=== PATIENT | female | born 1980 | race Caucasian/White ===

== ENCOUNTER 2020-01-13 09:19 | Emergency (ER) | payer OTHER, SELFPAY ==
--- NOTE | 2020-01-13 09:22 | ED.GENADULT ---
HPI - General Adult General Chief complaint: Skin/Abscess/Foreign Body Stated complaint: sore on left bikini line Time Seen by Provider: 01/13/20 09:36 Source: patient Mode of arrival: ambulatory Limitations: no limitations History of Present Illness HPI narrative: 39-year-old female patient presents to the [facility] with complaints of pimple to the left groin that is been there for about 3 days. Patient states she was able to pop it on her own and states that she had been putting Bactroban on it and it was getting better. Patient states that she sat around in a swimsuit yesterday and states that seem to have gotten a little bit worse. Denies any fevers, body aches or chills. Denies any chest pain or shortness of breath. Related Data Home Medications Medication Instructions Recorded Confirmed No Home Medications 01/13/20 01/13/20 Allergies Allergy/AdvReac Type Severity Reaction Status Date / Time Sulfa (Sulfonamide Allergy Unknown Rash Verified 01/13/20 09:30 Antibiotics) Review of Systems Review of Systems: Narrative: CONSTITUTIONAL: Denies fever, chills, or sweats. EYES: Denies visual changes, redness, or discharge. ENT: Denies rhinorrhea, congestion, sore throat, or otalgia. CARDIOVASCULAR: Denies chest pain, palpitations, or edema. RESPIRATORY: Denies cough or dyspnea. GASTROINTESTINAL: Denies abdominal pain, nausea, vomiting, or diarrhea. GENITOURINARY: Denies dysuria or hematuria. SKIN: Denies rash or itching. Positive pimple to left groin x3 days MUSCULOSKELETAL: Denies back pain, joint pain, or myalgia. NEUROLOGIC: Denies headache, numbness, or weakness. PSYCHIATRIC: Denies anxiety or depression. [facility] Surgical History Surgical History (Updated 07/23/19 @ 09:09 by Carmen Weller NP) Previous section S/P removal of left ovary Family History Family History Mother Family history of pulmonary embolism Other Family history of malignant neoplasm of breast Family history of type 1 diabetes mellitus Social History Social History Smoking status: Never smoker Alcohol intake: current Gender identity (if verbalized by the patient): Female Comments At the time of my signature I agree with nursing past medical history, surgical, social, and family history. There is no relevant family history pertinent to the presenting complaint. Exam Narrative: Exam Narrative: GENERAL: Well-appearing, well-nourished, and in no acute distress. HEAD: Normocephalic, atraumatic. EYES: PERRLA and EOMI. ENT: Nares clear, no rhinorrhea or epistaxis. Mucous membranes moist. NECK: Supple. No lymphadenopathy CHEST: Clear to auscultation. No respiratory distress. HEART: Regular rate and rhythm. No murmur heard. Normal peripheral pulses. ABDOMEN: Soft, nontender, nondistended, normal active bowel sounds. EXTREMITIES: Normal range of motion. No edema. SKIN: Warm, dry, no rash. Patient has small pimple-like area measuring approximately 0.5 cm in diameter on the left groin right along the underwear line. There is no warmth noted. No active discharge. Small scab in the middle where patient had popped the area. NEURO: No focal deficits. Alert and oriented x3. Course Vital Signs Vital signs: Vital Signs Temperature 36.8 C 01/13/20 09:27 Pulse Rate 87 01/13/20 09:27 Respiratory Rate 16 01/13/20 09:27 Blood Pressure 113/69 01/13/20 09:27 Pulse Oximetry 99 01/13/20 09:27 Temperature 36.8 C 01/13/20 09:27 Pulse Rate 87 01/13/20 09:27 Respiratory Rate 16 01/13/20 09:27 Blood Pressure 113/69 01/13/20 09:27 Pulse Oximetry 99 01/13/20 09:27 Vital signs reviewed. Procedures Abscess I/D lower extremity: Date of Incision: 01/13/20 Side (if applicable): left Sedation/analgesia: none Local Anesthetic: none (Let) Technique: other
[2020-01-13 09:27] VITALS: BP 113/69; PULSE 87; RESP 16; TEMP 36.8; O2SAT 99
== END 2020-01-13 10:10 | disposition home or self-care (01) ==
PROVIDERS: Emergency Provider Nurse Practitioner Family; PCP Internal Medicine
DX: L02.416 Cutaneous abscess of left lower limb (principal)
CPT/HCPCS: 10060; 99212; G0463

== ENCOUNTER 2022-03-18 10:34 | Emergency (ER) | payer OTHER, SELFPAY ==
[2022-03-18] VITALS (21 sets, daily range): BP systolic 105–147; BP diastolic 64–88; PULSE 89–110; RESP 13–24; TEMP 36.5–36.9; O2SAT 95–100
--- NOTE | 2022-03-18 10:52 | ECG_ITS ---
Measurements Intervals [place] Rate: 97 P: 62 LA: 150 QRS: 78 QRSD: 97 T: 57 QT: 365 QTc: 464 Interpretive Statements SINUS RHYTHM POSSIBLE LEFT ATRIAL ENLARGEMENT [-0.1mV P-WAVE IN V1/V2] NONSPECIFIC T-WAVE ABNORMALITY NO PREVIOUS ECG AVAILABLE FOR COMPARISON Electronically Signed On 03-19-2022 13:18:10 CDT by Karolina Colmenares M.D.
[2022-03-18 11:03] LABS: Basophils Absolute Auto 0.1 K/mm3 (0.0-0.1); Basophils Percent Auto 0.6 % (0.2-1.2); Eosinophils Absolute Auto 0.1 K/mm3 (0-0.3); Eosinophils Percent Auto 1.1 % (0-4.4); Hematocrit 40.1 % (37.0-47.0); Hemoglobin 13.5 g/dL (12.0-15.0); Immature Granulocyte Absolute 0.03 K/mm3 (0.00-0.031); Immature Granulocyte Percent A 0.4 % (0-0.5); Lymphocytes Absolute Auto 2.09 K/mm3 (0.9-3.2); Lymphocytes Percent Auto 24.7 % (18.3-44.2); Mean Corpuscular HGB Conc 33.7 g/dl (32-36); Mean Corpuscular Hemoglobin 32.4 pg (26-34); Mean Corpuscular Volume 96.2 fl (80-100); Mean Platelet Volume 9.9 fl (7.4-10.4); Monocytes Absolute Auto 0.4 K/mm3 (0.1-0.6); Monocytes Percent Auto 5.2 % (2.6-8.5); Neutrophils Absolute Auto 5.8 K/mm3 (1.3-6.7); Platelet Count Result 319 k/mm3 (150-375); Red Blood Count 4.17 M/mm3 (4.2-5.4); Red Cell Distribution Width 13.1 % (11.5-14.5); White Blood Count 8.5 K/mm3 (4.5-10.0)
--- NOTE | 2022-03-18 11:10 | PC.NURSE ---
Patient states she is unable to urinate at this time.
[2022-03-18 11:35] LABS: Anion Gap 16 mmol/L (8-16); Blood Urea Nitrogen 5 mg/dL (7-17); Calcium 9.1 mg/dL (8.4-10.2); Carbon Dioxide 18 mmol/L (22-30); Chloride 100 mmol/L (98-107); Estimated CRCL calculation 104 ml/min; Estimated Glomerular Filt Rate > 60; Glucose 90 mg/dL (65-110); Potassium 2.9 mmol/L (3.4-5.0); Sodium 134 mmol/L (137-145)
--- NOTE | 2022-03-18 11:44 | PC.NURSE ---
Patient states she feels bad and that she might pass out. EDP Joel notified.
[2022-03-18] MEDS: LORazepam INJ (*CRX) 2 MG/ML VIAL 0.5 MG IV PUSH (11:59)
[2022-03-18] MEDS: POTASSIUM CHLORIDE 20 MEQ PACKET (FOR LIQUID) 40 MEQ PO (12:00)
[2022-03-18] MEDS: SODIUM CHLORIDE 0.9% IV 1,000 ML 999 ML IV CONT (12:01)
[2022-03-18] MEDS: POTASSIUM CHLORIDE INJ 40 MEQ in SODIUM CHLORIDE 0.9% IV 500 ML 130 MEQ IVPB (12:01)
--- NOTE | 2022-03-18 12:02 | ED.WEAKNESS ---
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 State that she was driving earlier with her son when this episode started and she had to pull tab dealer. Social EtOH intake not daily drinker. Related Data Home Medications Medication Instructions Recorded Confirmed No Home Medications 01/13/20 01/13/20 Allergies Allergy/AdvReac Type Severity Reaction Status Date / Time Sulfa (Sulfonamide Allergy Unknown Rash Verified 03/18/22 10:46 Antibiotics) Review of Systems Review of Systems: CONST: Malaise HEENT: No sore throat C/V: No chest pain RESP: No cough GI: No abdominal pain : No dysuria. M/S: No joint pain. SKIN: No rash. NEURO: [No headache or focal numbness or weakness] PSYCH: Anxiety PMFSH Surgical History Surgical History Previous section S/P removal of left ovary Family History Family History Mother Family history of pulmonary embolism Other Family history of malignant neoplasm of breast Family history of type 1 diabetes mellitus Social History Social History Smoking status: Never smoker Alcohol intake: current Gender identity (if verbalized by the patient): Female Exam Narrative: EXAMINATION OF ORGAN SYSTEMS/BODY AREAS: Constitutional: Vital signs per nursing GENERAL: Appears quite anxious HEAD: Normal with no signs of head trauma. EYES: EOMI, conjunctiva normal ENT: Hearing grossly intact LUNGS: tachypneic HEART: tachycardic ABD: [Soft], [nontender to palpation] EXT: Normal range of motion SKIN: [No rashes or lesions.] NEURO: [Alert and oriented x 3. No gross focal sensory or strength deficits.] PSYCH: Anxious affect Course Vital Signs Vital signs: Vital Signs Temperature 97.7 F 03/18/22 10:43 Pulse Rate 108 H 03/18/22 10:43 Respiratory Rate 18 03/18/22 10:43 Blood Pressure 147/88 H 03/18/22 10:43 Pulse Oximetry 100 03/18/22 10:43 Oxygen Delivery Room Air 03/18/22 10:43 Temperature 97.7 F 03/18/22 10:43 Pulse Rate 100 03/18/22 12:23 Respiratory Rate 19 03/18/22 12:23 Blood Pressure 135/85 03/18/22 11:01 Pulse Oximetry 100 03/18/22 11:30 Oxygen Delivery Room Air 03/18/22 10:43 MDM - Weakness MDM Narrative Medical decision making narrative: 41-year-old female presenting with malaise and anxiety that started this morning, vital signs notable for tachycardia, on exam she does appear quite anxious, my differential includes possible anxiety attack, anemia, less likely PE without chest pain or difficulty breathing. Labs notable for low potassium and bicarb, she will be repleted and was given small dose of ativan with total resolution of her symptoms. She states her vaginal bleeding has resolved and declined a pelvic exam at this time. I have asked her to follow-up with her primary care doctor for further work-up and return precautions provided to the patient. Lab Data Result diagrams: 03/18/22 10:54 03/18/22 10:54 Labs: Lab Results 03/18/22 03/18/22 03/18/22 Range/Units 10:54 10:54 10:54 WBC 8.5 (4.5-10.0) K/mm3 RBC 4.17 L (4.2-5.4) M/mm3 Hgb 13.5 (12.0-15.0) g/dL Hct 40.1 (37.0-47.0) % M
[2022-03-18 12:22] LABS: Add Urine Microscopic? NO; Appearance Urine Clear (Clear); Bilirubin Urine Negative (Negative); Blood Urine Negative (Negative); Color Urine Yellow (Yellow); Glucose Urine UA Negative (Negative); Ketones Urine Negative (Negative); Leukocyte Esterase Ur Negative LEU/UL (Negative); Nitrate Urine Negative (Negative); Protein Urine Negative (Negative); Urobilinogen Urine 0.2 mg/dL (<2.0)
[2022-03-18 12:41] LABS: D Dimer 0.48 ug/mL (<0.48)
[2022-03-18] MEDS: ACETAMINOPHEN 500 MG TABLET 1000 MG PO (16:01)
== END 2022-03-18 17:38 | disposition home or self-care (01) ==
PROVIDERS: Emergency Provider Emergency Medicine; PCP Internal Medicine
DX: E87.6 Hypokalemia (principal)
CPT/HCPCS: 36415; 80048; 81003; 81025; 85025; 85380; 93005; 96365; 96366; 96375; 99284; A9270; J2060; J3480; J7030; J7040

== ENCOUNTER → 2022-06-17 11:17 | Outpatient (CLI) | payer OTHER, SELFPAY ==
--- NOTE | ~2022-06-17 | MM_ITS ---
EXAMINATION: MM scrn michele implant BI w [facility] HISTORY: Screening mammogram TECHNIQUE: Craniocaudal and mediolateral oblique 3-D tomosynthesis images with implant displacement a nd synthetic 2-D images were generated. Craniocaudal and mediolateral oblique views of the breasts wi thout implant displacement were obtained using full field digital mammography. CAD analysis was submi tted and interpreted. COMPARISON: 09/30/2015 BREAST PARENCHYMAL COMPOSITION: The breasts are heterogeneously dense, which may obscure small masses FINDINGS: There are bilateral subglandular silicone implants. There is a new focal asymmetry in the p eriareolar location of the right breast just lateral to the nipple. The left breast is stable without evidence for malignancy. IMPRESSION: 1. New right breast asymmetry. 2. Additional mammographic views and possible breast ultrasound are recommended. BI-RADS Category 0: Incomplete: Needs additional imaging evaluation. Reviewed, dictated and finalized at location A. ESS AREA SUPERVISOR IMPRESSION: 1. New right breast asymmetry. 2. Additional mammographic views and possible breast ultrasound are recommended . BI-RADS Category 0: Incomplete: Needs additional imaging evaluation.
== END ==
PROVIDERS: PCP Internal Medicine; Visit Provider Obstetrics & Gynecology
DX: Z12.31 Encounter for screening mammogram for malignant neoplasm of breast (principal); R92.8 Other abnormal and inconclusive findings on diagnostic imaging of breast
CPT/HCPCS: 77063; 77067

== ENCOUNTER → 2022-07-08 08:15 | Outpatient (CLI) | payer OTHER, SELFPAY ==
--- NOTE | ~2022-07-08 | MMUS_ITS ---
EXAMINATION: MM diag michele implant RT w [facility], US breast RT limited HISTORY: Focal asymmetry of the right breast on screening mammogram TECHNIQUE: Craniocaudal, mediolateral, and mediolateral oblique 3-D tomosynthesis images with implant displacement of the right breast were performed and synthetic 2-D images were generated. Mediolater al oblique view of the right breast without implant displacement were obtained using full field digit al mammography. CAD analysis was submitted and interpreted. High resolution limited right breast ultr asound was performed. COMPARISON: 06/17/2022, 09/30/2015 FINDINGS: MAMMOGRAPHIC FINDINGS: No definite focal asymmetry persists with spot compression in the subareolar aspect of the right [address]. ULTRASOUND: There is a 6 mm x 4 mm oval, circumscribed, parallel, hypoechoic mass with no posterior features or i nternal vascularity at the 11:00 location 5 cm from the nipple. There is a 10 mm x 4 mm oval, circums cribed, complex cystic and solid mass at the 11:00 location 4 cm from the nipple with no posterior fe atures or internal vascularity, possible clustered microcysts. There is a 3 mm round, hypoechoic, cir cumscribed mass with no posterior features or internal vascularity at the 12:00 location 6 cm from th e nipple. IMPRESSION: 1. Probably benign right breast masses. 2. Recommend 6 month follow-up right diagnostic mammogram and ultrasound. BI-RADS category 3, probably benign findings. Reviewed, dictated and finalized at location A. ERMAKER SHIP IMPRESSION: 1. Probably benign right breast masses. 2. Recommend 6 month follow-up right diagnostic mammogram and ultrasound. BI-RADS category 3, probably benign findings.
== END ==
PROVIDERS: PCP Internal Medicine; Visit Provider Obstetrics & Gynecology
DX: R92.8 Other abnormal and inconclusive findings on diagnostic imaging of breast (principal)
CPT/HCPCS: 76642; 77061; 77065; G0279

== ENCOUNTER 2022-07-20 01:27 | Day surgery (SDC) | payer OTHER, SELFPAY ==
[2022-07-06 12:08] VITALS: BMI 25.8
--- NOTE | 2022-07-06 12:12 | PC.NURSE ---
Report to the Outpatient Waiting Room, entrance under the green pavilion located off [facility], at time 0600 on date 07/20/22. Planned Procedure Time: 0730. Time changes happen often and if your time is changed the preop area will call you the afternoon before. - You and your visitor will be asked to self-screen and do not enter if you have any COVID symptoms. - Only one visitor is requested with a max of two and NO children visitors are allowed at this time. - The patient visitor may be requested to leave or wait in car when not with patient due to distancing restrictions. - A mask is optional within the hospital. Patients may have clear liquids (water, carbonated beverages, clear teas, apple juice) until 3 hours prior to surgery with a maximum of 20 ounces. - No food from midnight until time of surgery Take the following medications with a SIP of water the morning of surgery: ALPRAZOLAM, PROPRANOLOL Medications to discontinue per physician: N/A Date to take last dose: N/A Please no make-up, nail swedish, hairspray, perfume, deodorant, or body powder the day of surgery. No jewelry (including any body piercings) or valuables the day of surgery, leave them at home. Please take a shower or bath the night before, or the morning of, surgery with an antibacterial soap. Wear comfortable, loose fitting clothing. - Jewelry must be removed prior to entering the operating room. Rings and piercings that are not removed may be cut off. - The hospital will not accept responsibility for valuables. - Please leave all valuables, including medications, at home the day of surgery. If you are going home after surgery, a licensed team otr truck driver must drive you home. - NO public transportation without another adult if you receive anesthesia. - We recommend that an adult stay with you for 24 hours following discharge. - We also recommend that you do not drive, make important decision, drink alcoholic beverages, or take any drugs that were not prescribed by your health care provider for at least 24 hours after your discharge time. Follow any additional instructions given to you from your surgeon. If you or anyone in your household have experienced Covid symptoms in the past week, please notify your surgeon or the nurse liaison at the phone number below for possible testing. Telephone instructions given to PT - ELZBIETA LENTZ and asked if any additional questions and then verbalized understanding. Patient advised to call surgeon office or pre surgery nurse liaison [phone] if any additional questions.
--- NOTE | 2022-07-19 21:26 | PM.IMHP ---
H&P: HPI History of Present Illness Date/Time: 07/19/22 21:26 Chief Complaint: Heavy bleeding Narrative: Patient with a history of menorrhagia. She has been informed of options to include IUD, oral conrtraceptive pills, Depo Provera, Nexplanon or endometrial ablation. Partner has a vasectomy. Risk benefits have been discussed of each option. She has had a normal endometrial biopsy. She wants to proceed with endometrial ablation. Review of Systems Review of Systems: All systems reviewed & are unremarkable except as noted in HPI and below Constitutional: Constitutional: Reports no additional constitutional complaints Eyes: Eyes: Reports no additional eye complaints Cardiovascular: Cardiovascular: Reports no additional cardiovascular complaints Respiratory: Respiratory: Reports no additional respiratory complaints Gastrointestinal: Gastrointestinal: Reports no additional gastrointestinal complaints Genitourinary: Genitourinary: Reports no additional female genitourinary complaints and Reports as per HPI Integumentary/Breasts: Skin/Breast: Reports system reviewed and no additional complaints, except as docu Neurologic: Reports system reviewed and no additional complaints, except as documented Psychiatric: Psychiatric: Reports no additional psychiatric complaints Hematologic/Lymphatic: Hematologic/Lymphatic: Reports no additional hematologic/lymphatic complaints [facility] Past Medical History Medical History EP (ectopic ) History of miscarriage Surgical History Surgical History H/O breast augmentation History of breast lift History of dilatation and curettage Previous section x2 S/P hernia repair S/P removal of left ovary [place] teeth removed Family History Family History Mother Family history of pulmonary embolism Other Family history of malignant neoplasm of breast Family history of type 1 diabetes mellitus Social History Social History Smoking status: Never smoker Alcohol intake: current Drinks per week: 7 Substance use: never Substance use type: does not use Gender identity (if verbalized by the patient): Female Spiritual care concerns: No Meds Home Medications and Allergies Home Medications Medication Instructions Recorded Confirmed Type alprazolam 0.25 mg tablet (Xanax) 0.25 mg PO DAILY 05/09/22 07/06/22 History propranolol 60 mg tablet 60 mg PO Q12H 05/09/22 07/06/22 History Allergies Allergy/AdvReac Type Severity Reaction Status Date / Time Sulfa (Sulfonamide Allergy Unknown Rash Verified 07/06/22 12:07 Antibiotics) Exam Const: General: comfortable and no acute distress Orientation/consciousness: oriented to person, oriented to place and oriented to time Eyes: General: appearance normal, both eyes and all related structures Neck: Neck: normal visual inspection Resp: Effort & Inspection: normal respiratory effort Auscultation: clear to auscultation bilaterally Cardio: Rate: regular rate Rhythm: regular rhythm GI: Inspection: normal to inspection GI Palp: No abdominal tenderness and Yes No hepatosplenomegaly present : External Female Exam: normal external appearance Speculum Exam - Vagina: normal appearance of the vagina Speculum Exam - Cervix: normal appearance of the cervix Bimanual exam- vagina & uterus: normal bimanual exam, uterine mobility normal, uterine shape normal and non-tender Bimanual Exam- Adnexa, other: no masses and No adnexal tenderness Skin: General skin exam: normal color Neuro: General: oriented to person, oriented to place and oriented to time Psych: Appearance: grossly normal Assessment and Plan Assessment and plan (1) Menorrhagia: Code(s): N92.0 - Excessive and audie
[2022-07-20] MEDS: LACTATED RINGERS 1,000 ML 30 ML IV CONT (06:28)
[2022-07-20] MEDS: ACETAMINOPHEN 500 MG TABLET 1000 MG PO (06:31)
[2022-07-20 06:42] VITALS: BP 100/63; PULSE 80; RESP 16; TEMP 37.2; O2SAT 99
--- NOTE | 2022-07-20 06:56 | P.PNAN_ITS ---
Anes - Initial Pre Proc Eval Procedure: Operation Date: 07/20/22 07:30 Proposed Procedures p Hysteroscopy Dilation and Curettage, Ratna Endometrial Ablation - Douglas Mane MD Date/Time: 07/20/22 06:56 Surgeon: Douglas Mane MD Pre Op Diagnosis: menorrhagia Patient Data Age: 41 Gender: F Height: 1.73 m Weight: 77.3 kg Last Vital Signs Temp 37.2 C 07/20/22 06:42 Pulse 80 07/20/22 06:42 Resp 16 07/20/22 06:42 BP 100/63 07/20/22 06:42 Pulse Ox 99 07/20/22 06:42 O2 Del Method Room Air 07/20/22 06:42 Allergies Allergy/AdvReac Type Severity Reaction Status Date / Time Sulfa (Sulfonamide Allergy Unknown Rash Verified 07/20/22 06:36 Antibiotics) Home Medications Medication Instructions Recorded Confirmed Type alprazolam 0.25 mg tablet (Xanax) 0.25 mg PO DAILY 05/09/22 07/20/22 History propranolol 60 mg tablet 60 mg PO Q12H 05/09/22 07/20/22 History Patient hx anesthesia problems: none Family hx anesthesia problems: none Results Review: All pre-operative results and documents have been reviewed as part of the pre- operative evaluation. [facility] Past Medical History Medical History EP (ectopic ) History of miscarriage Surgical History Surgical History H/O breast augmentation History of breast lift History of dilatation and curettage Previous section x2 S/P hernia repair S/P removal of left ovary [place] teeth removed Family History Family History Mother Family history of pulmonary embolism Other Family history of malignant neoplasm of breast Family history of type 1 diabetes mellitus Social History Social History Smoking status: Never smoker Alcohol intake: current Drinks per week: 7 Substance use: never Substance use type: does not use Living arrangements: with family Gender identity (if verbalized by the patient): Female Spiritual care concerns: No Anes - Eval Final PreProcedure Day of Procedure 07/20/22 06:56 Patient weight: normal Heart: regular rate and rhythm Lungs: clear to auscultation Airway: Mallampati scale class II Neurological: alert and oriented Last oral intake: >/= 8 hours ASA classification: II Emergent: no Anesthetic plan: proceed Anesthesia type and monitoring: general GIVS and standard monitoring Results Review: All pre-operative results and documents have been reviewed as part of the pre- operative evaluation. Informed Consent: The patient's anesthetic plan and its attendant risks and benefits were discussed with the patient/family/POA. Questions were solicited and answers prov ided to the satisfaction of the patient/family/POA.
--- NOTE | 2022-07-20 07:24 | WPDHPUPDATE1 ---
History and Physical Update Update Date/Time: 07/20/22 07:24 History and Physical has been reviewed, including an updated exam of the patient. There are NO changes in the patient's condition. Risks, benefits, and alternatives have been discussed and questions answered. Patient agrees to proceed with procedure.
[2022-07-20] MEDS: ceFAZolin 2 GM/D5W 50 ML 2 GM/50 ML BAG IVPB (07:30)
[2022-07-20] MEDS: KETOROLAC 30 MG/ML VIAL (*BKC) 15 MG IV PUSH (07:58)
[2022-07-20] MEDS: LIDOCAINE HCL 1% PF 30 ML VIAL 10 ML INFILTRATE (07:58)
--- NOTE | 2022-07-20 08:01 | W.PM.PROC2 ---
Procedure Note - Detailed Date of Procedure 07/20/22 Pre-op Diagnosis menorrhagia Post-op Diagnosis Same Procedure Performed Ratna endometrial ablation, diagnostic hysteroscopy Surgeon Douglas Mane MD Anesthesia MAC and Local Indications Heavy periods Findings Normal uterine cavity, uterine length 5.5 cm. Fluid discrepancy less than 70cc. Description of Procedure After informed consent was obtained patient was taken to the operating room and adequate IV sedation was administered. Attention was turned to the vagina. Speculum was inserted. Single-tooth tenaculum placed on the anterior lip of the cervix. The uterus was sounded to 9 cm. The cervix was dilated to an 8 Parker dilator. The cervical length was 3.5. The hysteroscope was inserted into the cavity. The findings were a normal uterine cavity. The hysteroscope was removed. The Ratna ablation instrument was inserted into the cavity. Cavity assessment was performed and confirmed intact. The ablation was enabled. It stopped after approximately 20 seconds with a code of 002. The device was replaced. It was inserted into cavity. Cavity assessment proceeded. Device was enabled. After 120 seconds the Ratna stopped. The ablation instrument was removed. The hysteroscope was inserted and there was noted to be good eschar with the cavity. The hysteroscope was removed the single-tooth tenaculum was removed hemostasis was noted at the tenaculum site. Sponge count correct. The patient taken to recovery in stable condition. Estimated Blood Loss 5 Packing No Pathology None sent Complications No immediate complications Condition Stable Disposition Same day [facility] Billing Surgery - Charge Forward: Surgery Billing
[2022-07-20 08:07] VITALS: BP 95/59; PULSE 78; RESP 12; O2SAT 94
[2022-07-20 08:30] VITALS: BP 101/64; PULSE 71; RESP 14; O2SAT 97
[2022-07-20] MEDS: oxyCODONE HCL (*CRX) 5 MG TAB IR PO (08:44)
[2022-07-20 09:00] VITALS: BP 121/84; PULSE 70; RESP 14
[2022-07-20 09:20] VITALS: BP 121/79; PULSE 71; RESP 14
--- NOTE | 2022-07-20 09:26 | PM.GYNPNOP ---
OPTICAL SYSTEMS ENGINEER - A/P Postoperative Procedures: Procedures Operation Date: 07/20/22 07:30 Actual Procedure Side Surgeon p Hysteroscopy, Ratna Endometrial Ablation Douglas Mane MD Time Spent With Patient Time: Total time spent is greater than 50% in coordination of care (as documented) at patient's floor/unit and/or counseling patient: Time with patient: less than 15 minutes OPTICAL SYSTEMS ENGINEER- PN:Subj Post-Op Subjective Date/time seen: 07/20/22 09:26 Interval history: She stated pain felt like a constant contraction. She is concerned about NSAIDS not helping pain at home. Will send in 4 [place] to help for pain 7 or greater. OPTICAL SYSTEMS ENGINEER - PN: Obj Data Vital Signs Vital Signs: Vital Signs - 24 hr 07/20/22 06:42 07/20/22 08:07 07/20/22 08:30 Temperature 98.9 F Pulse Rate 80 78 71 Respiratory Rate 16 12 14 Blood Pressure 100/63 95/59 L 101/64 Pulse Oximetry 99 94 97 Oxygen Delivery Room Air Room Air Room Air Intake/Output Intake/Output: Intake & Output 07/17/22 07/18/22 07/19/22 07/20/22 23:59 23:59 23:59 23:59 Intake Total 550 Balance 550 Meds/Results Medications: Active Medications Generic Name Dose Route Start Last Admin Trade Name Freq PRN Reason Stop Dose Admin Fentanyl Citrate 25 mcg 07/20/22 06:57 Fentanyl Citrate Inj (*Crx) 100 Mcg/2 Ml Vial IV PUSH Q2M PRN Pain Lactated Ringer's 1,000 mls @ 30 mls/hr 07/20/22 06:45 07/20/22 09:20 Lr - Lactated Ringers Iv IV CONT Infused .Q24H MARISOL Infusion Lactated Ringer's 1,000 mls @ 30 mls/hr 07/20/22 07:00 Lr - Lactated Ringers Iv IV CONT .Q24H MARISOL Ondansetron HCl 4 mg 07/20/22 06:57 Ondansetron Inj 4 Mg/2 Ml Vial IV PUSH ONCE PRN Nausea Oxycodone HCl 5 mg 07/20/22 06:57 07/20/22 08:44 Oxycodone Hcl (*Crx) 5 Mg Tab Ir PO 5 mg ONCE PRN Administration Pain
== END 2022-07-20 09:32 | disposition home or self-care (01) ==
PROVIDERS: PCP Internal Medicine; Visit Provider Obstetrics & Gynecology
PROC: 0U5B8ZZ Destruction of Endometrium, Via Natural or Artificial Opening Endoscopic (ICD-10-PCS; CPT 58563; principal; 2022-07-20 07:30)
DX: N92.0 Excessive and frequent menstruation with regular cycle (principal)
CPT/HCPCS: 58563; A9270; J0690; J1885; J2250; J2405; J2704; J3010; J7120

== ENCOUNTER → 2023-03-14 09:32 | Outpatient (CLI) | payer OTHER, SELFPAY ==
--- NOTE | ~2023-03-14 | MMUS_ITS ---
EXAMINATION: MM diag michele implant RT w [facility], US breast RT limited HISTORY: Follow-up right breast asymmetries TECHNIQUE: Additional 3-D tomosynthesis images of the right breast were performed and synthetic 2-D i mages were generated. CAD analysis was submitted and interpreted. High resolution Limited right breas t ultrasound was performed. COMPARISON: Comparison to multiple prior studies sequentially, with oldest reviewed study dated 08/2015. BREAST PARENCHYMAL COMPOSITION: Breast composed of scattered areas of fibroglandular density FINDINGS: MAMMOGRAPHIC FINDINGS: There is a subpectoral silicone implant. Nodular asymmetries are unchanged in the right breast which are obscured by fibroglandular tissue. No new masses, calcifications or architectural distortion. ULTRASOUND: Limited right breast ultrasound: There are multiple simple and complicated cysts of the right breast. No suspicious masses in the right breast to suggest malignancy. IMPRESSION: 1. No evidence for malignancy in the right breast. Benign findings. 2. Routine yearly screening mammogram and regular clinical breast examination are recommended. BI-RADS Category 2: Benign finding(s). Reviewed, dictated and finalized at location A. IMPRESSION: 1. No evidence for malignancy in the right breast. Benign findings. 2. Routine yearly screening mammogram and regular clinical breast examination a re recommended. BI-RADS Category 2: Benign finding(s).
== END ==
PROVIDERS: PCP Obstetrics & Gynecology; Visit Provider Obstetrics & Gynecology
DX: N63.10 Unspecified lump in the right breast, unspecified quadrant (principal); R92.8 Other abnormal and inconclusive findings on diagnostic imaging of breast
CPT/HCPCS: 76642; 77061; 77065; G0279

== ENCOUNTER 2024-12-11 13:28 | Outpatient (CLI) | payer OTHER, SELFPAY ==
--- NOTE | ~2024-12-11 | MM_ITS ---
EXAMINATION: MM scrn michele implant BI w [facility] HISTORY: Screening mammogram TECHNIQUE: Craniocaudal and mediolateral oblique 3-D tomosynthesis images with implant displacement a nd synthetic 2-D images were generated. Craniocaudal and mediolateral oblique views of the breasts wi thout implant displacement were obtained using full field digital mammography. CAD analysis was submi tted and interpreted. COMPARISON: Comparison to multiple prior studies sequentially, with oldest reviewed study dated 08/2015. BREAST PARENCHYMAL COMPOSITION: Dense: The breasts are heterogeneously dense, which may obscure small masses FINDINGS: There is no evidence of suspicious mass, calcification, or architectural distortion to sugg est malignancy in either breast. There has been no suspicious interval change. IMPRESSION: 1. No mammographic evidence of malignancy. 2. Recommend routine screening mammography in one year. BI-RADS Category 1: Negative Reviewed, dictated and finalized at location A.
== END 2024-12-11 13:29 | disposition home or self-care (01) ==
LOC: MICIMG 13:28
PROVIDERS: PCP Obstetrics & Gynecology; Visit Provider Obstetrics & Gynecology
DX: Z12.31 Encounter for screening mammogram for malignant neoplasm of breast (principal)
CPT/HCPCS: 77063; 77067

== ENCOUNTER 2025-03-20 03:24 | Day surgery (SDC) | payer OTHER, SELFPAY ==
[2025-03-07 10:36] VITALS: BMI 23.9
--- NOTE | 2025-03-07 10:54 | PC.NURSE ---
Report to the Outpatient Waiting Room, entrance under the green pavilion located off [facility], at 0600 on 03-20-25. Planned Procedure Time: 0730.? Time changes happen often and if your time is changed the preop area will call you the afternoon before. - You and your visitor will be asked to self-screen and do not enter if you have any COVID symptoms. Please call surgeon if you need to reschedule. - A mask is optional within the hospital at this time. Patients may have clear liquids (water, carbonated beverages, clear teas, apple juice) until 3 hours prior to surgery with a maximum of 20 ounces. 0430 - No food from midnight until time of surgery and no smoking, or chewing tobacco (or any form of nicotine). No chewing gum, candy or mints. - Infants may have breast milk until 4 hours before surgery, formula 6 hours prior to surgery. - Children will be allowed to drink immediately following surgery.? If applicable, please bring a bottle or sippy cup to assist with drinking. Juice, water, soda, and popsicles are readily available.? For infants on formula, please bring formula the day of surgery.? Pacifiers are allowed. Take only the following medications with a SIP of water on the morning of surgery: levothyroxine, escitalopram, Xanax if needed DO NOT STOP ANY OF YOUR OTHER PRESCRIPTION MEDICATIONS PRIOR TO SURGERY EXCEPT THE FOLLOWING Hold all vitamins and supplements for 3 days per anesthesiologist. Medications to discontinue per physician: N/A Please no make-up, nail honduran, hairspray, perfume, deodorant, or body powder the day of surgery.? No jewelry (including any body piercings) or valuables the day of surgery, leave them at home.? Please take a shower or bath the night before, or the morning of, surgery with an antibacterial soap.? Wear comfortable, loose fitting clothing.? Patient was encouraged to wear a button down shirt/ zip up jacket DOS. Children are encouraged to wear pajamas. - Jewelry must be removed prior to entering the operating room.? Rings and piercings that are not removed may be cut off. - The hospital will not accept responsibility for valuables.? - Please leave all valuables, including medications, at home the day of surgery. If you are going home after surgery, a licensed p d driver must drive you home.? - NO public transportation without another adult if you receive anesthesia. - We recommend that an adult stay with you for 24 hours following discharge. - We also recommend that you do not drive, make important decision, drink alcoholic beverages, or take any drugs that were not prescribed by your health care provider for at least 24 hours after your discharge time. For Pediatric surgeries, we recommend two adults accompany the child home. Follow any additional instructions given to you from your surgeon. Telephone instructions given to Linda San and asked if any additional questions and then verbalized understanding. Patient advised to call surgeon office or pre surgery nurse liaison [phone] if any additional questions.
[2025-03-20] VITALS (8 sets, daily range): BP systolic 112–137; BP diastolic 70–92; PULSE 76–90; RESP 12–20; TEMP 36.3–36.6; O2SAT 96–100; BMI 24.3
--- OUTSIDE RECORDS SUMMARY | 2025-03-20 03:27 | XMS_ITS | Clinical Summary ---
Author Organization [facility] Address [address] [place] [address] Phone Care Team Providers Care Technical Professional Name Role Phone Unavailable Primary Care Provider Unavailabl e Social History Tobacco Use Types Packs/Day Years Used Date Smoking Tobacco: Never Assessed Comments Unknown Sex and Gender Information Value Date Recorded Sex Assigned at Not on file Legal Sex Female 10:59 PM CDT Gender Identity Not on file Sexual Orientation Not on file Plan of Treatment Health Maintenance Due Date Last Done Comments Hepatitis C Virus (HCV) Screening 1978 TdaP Immunization 1978 Hepatitis B Immunization (1 of 3 - 19+ 3-dose series) 1997 Pap Smear 10/16/1999 Cervical Cancer Screening (CCS) 2008 HPV/Cotest 2008 Cologuard 10/16/2023 Colonoscopy 10/16/2023 Colorectal Cancer Screening 10/16/2023 Immunochemical Fecal Occult Blood 10/16/2023 SARS-COV-2 Immunization ( season) 2024 05/26/2021, 08/27/2020, 07/30/2020 Influenza Immunization (#1) 03/31/202504/30, 05/17/2018, 03/28/2017, Additional history exists Respiratory Syncytial Virus (RSV) Immunization (Adult) (1 - 1-dose 75+ series) 2053 Human Papillomavirus (HPV) Immunization Aged Out No longer eligible based on patient's age to complete this topic Meningococcal Immunization (ACWY) Aged Out No longer eligible based on patient's age to complete this topic Pneumococcal Immunization Combined Aged Out No longer eligible based on patient's age to complete this topic Rotavirus Immunization Aged Out No lo nger eligible based on patient's age to complete this topic
--- OUTSIDE RECORDS SUMMARY | 2025-03-20 03:27 | XMS_ITS | Patient Health Record ---
Author Organization [facility] Address [address] [place] [address] Care Team Providers Care Estimator Name Role Phone Frederick BABCOCK, Walt Primary Care Provider Unav brendan MEDINA, PA-C, ELZBIETA Unavailable Reason For Referral No Information Plan Of Treatment No Information Insurance Providers Payer Name Payer Address Payer Phone Subscriber Number Group Number Insured Name Patient Relationship to Insured Coverage Start Date Coverage End Date [facility] [address] [place], [place] [id number] Reema San Self - patient is the insured
--- OUTSIDE RECORDS SUMMARY | 2025-03-20 03:27 | XMS_ITS | Clinical Summary ---
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 Immunizations Immunization Administration Dates Next Due Hep A, Pediatric 07/28/1999 Hep B Vaccine 06/01/2011,12/24/2010,11/22/2010 Influenza, Quadrivalent, Spl it, Preservative Free, Intramuscular 05/15/2019,05/14/2019,05/17/2018,06/26,05/11/2015 Influenza, Split 08/24/2010 Influenza, Trivalent, IM (MDV) 7,04/21/2014,04/02/2012,04/17 Influenza, Trivalent, Preser vative Free, Intramuscular 06/25/2016,05/10/2015 TD Preservative Free 12/19/2014 Tdap 11/22/2010 Surgical History Surgery Date Site/Laterality Comments OTHER SURGICAL HISTORY 2005 Ectopic : Left oophorectomy TONSILLECTOMY 2001 Tonsillectomy OTHER SURGICAL HISTORY 2006 D&C OTHER SURGICAL HISTORY 2001 Tonsillitis: tonsilectomy et adnoidectomy OTHER SURGICAL HISTORY 2006 miscarriage: D&C UMBILICAL HERNIA REPAIR umbilical hernia repair OTHER SURGICAL HISTORY csections x2 Medical History Medical History Date Comments Hx Other Medical 2006 Ectopic Pregnan cy Tonsillitis 2001 Tonsillitis Hx Other Medical 2006 miscarriage Family History Medical History Relation Name Comments Diabetes type I Son 2 Diabetes saniya litus type 1; Relation Name Status Comments Son 1 Alive Son 2 Social History Tobacco Use Types Packs/Day Years Used Date Smoking Tobacco: Never Smokeless Tobacco: Never Alcohol Use Standard Drinks/Week Comments Yes 0 (1 standard drink = 0.6 oz pur e alcohol) Comments Unknown Sex and Gender Information Value Date Recorded Sex Assigned at Not on file 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 Gender Identity Not on file Sexual Orientation Not on file Obstetrics History Last Filed Vital Signs Vital Sign Reading Time Taken Comments Blood Pressure 133/92 04/04/2024 9:05 AM CDT Pulse 82 04/04/2024 9:05 AM CDT Temperature 36.8 C (98.2 F) 02/01/2022 6:38 PM CDT Respiratory Rate 16 02/01/2022 6:38 PM CDT Oxygen Saturation 99% 02/01/2022 6:38 PM CDT Inhaled Oxygen Concentration - - Weight 70.8 kg (156 lb) 04/04/2024 9:05 AM CDT Height 172.7 cm (5' 8) 04/04/2024 9:05 AM CDT Body Mass Index 23.72 04/04/2024 9:05 AM CDT Plan of Treatment Health Maintenance Due Date Last Done Comments Breast Cancer Screening-Mammogram 1978 Cervical Cancer Screening 1978 Colon Cancer Screening-Colonoscopy 1978 Depression Screening 1978 Hepatitis C Screening 1978 Regular Well Visit/Exam 18-64 1996 DTaP/Tdap/Td Vaccine (3 - Td or Tdap) 12/19/2024 12/19/2014, 11/22/2010 Influenza Vaccine (#1) 2025 , 04/20/2023, 05/12/2022, Additional history exists Hepatitis B Screening Completed 06/01/2011 , 12/24/2010, 11/22/2010 HPV Vaccines Aged Out No longer eligi ble based on patient's age to complete this topic Pneumococcal vaccine <65 Aged Out No longer eligible based on patient's age to complete this topic Insurance [facility] CHO[facility] PLUS [facility] HMO/PPO Address: [place] [address] [facility]/PPO Address: [place] [address] [facility] PL[facility]/PPO Address: [facility] [id number] [place], [place] [id number] Care Teams Overlay Plastician Relationship Specialty Start Date End Date Walt Mack MD [address] [place] [address] PCP - General 10/28/16
[2025-03-20] MEDS: LACTATED RINGERS 1,000 ML 30 ML IV CONT ×2 (06:30→08:57)
--- NOTE | 2025-03-20 06:59 | WPDANESEPPF ---
Anes - Initial Pre Proc Eval Procedure: Operation Date: 03/20/25 07:30 Proposed Procedures p Bilateral Breast Implant Exchange - Eulogio Jorgensen MD Date/Time: 03/20/25 06:59 Surgeon: Eulogio Jorgensen MD Pre Op Diagnosis: Hx of Breast Augmentation Patient Data Age: 44 Gender: F Height: 1.71 m Weight: 70.31 kg Allergies Allergy/AdvReac Type Severity Reaction Status Date / Time Sulfa (Sulfonamide Allergy Unknown Rash Verified 03/07/25 10:32 Antibiotics) Home Medications ?Medication ?Instructions ?Recorded ?Confirmed ?Type alprazolam 0.25 mg tablet (Xanax) 0.25 mg PO DAILY PRN anxiety 05/09/22 03/07/25 History escitalopram oxalate 10 mg tablet 10 mg PO DAILY 12/11/24 03/07/25 History (Lexapro) levothyroxine 25 mcg tablet 25 mcg PO DAILY 12/11/24 03/20/25 History (Synthroid) Patient hx anesthesia problems: none Family hx anesthesia problems: none Results Review: All pre-operative results and documents have been reviewed as part of the pre-operative evaluation. [facility] Past Medical History Medical History History of miscarriage EP (ectopic ) Surgical History Surgical History [place] teeth removed S/P hernia repair History of dilatation and curettage History of breast lift H/O breast augmentation S/P removal of left ovary Previous section x2 Family History Family History Mother Family history of pulmonary embolism Other Family history of malignant neoplasm of breast Family history of type 1 diabetes mellitus Social History Social History Smoking status: Never smoker Second hand tobacco smoke exposure: No Alcohol intake: current Drinks per week: 7 Alcohol use details: socially Substance use: never Substance use type: does not use Living arrangements: with family Gender identity (if verbalized by the patient): Female Spiritual care concerns: No Anes - Eval Final PreProcedure Day of Procedure 03/20/25 06:59 Patient weight: normal Heart: regular rate and rhythm Lungs: clear to auscultation Airway: Mallampati scale class II Neurological: alert and oriented Last oral intake: >/= 8 hours ASA classification: I Emergent: no Anesthetic plan: proceed Anesthesia type and monitoring: general GIVS and standard monitoring Results Review: All pre-operative results and documents have been reviewed as part of the pre-operative evaluation. Informed Consent: The patient's anesthetic plan and its attendant risks and benefits were discussed with the patient/family/POA. Questions were solicited and answers provided to the satisfaction of the patient/family/POA.
[2025-03-20] MEDS: TRANEXAMIC ACID 1,000MG/ISO100 1,000 MG/100 ML BAG 200 MG IVPB (07:00)
--- NOTE | 2025-03-20 07:12 | WPDHPUPDATE1 ---
History and Physical Update Update Date/Time: 03/20/25 07:12 History and Physical has been reviewed, including an updated exam of the patient. There are NO changes in the patient's condition. Risks, benefits, and alternatives have been discussed and questions answered. Patient agrees to proceed with procedure.
--- NOTE | 2025-03-20 07:13 | P.OP_ITS ---
Procedure Note - Detailed Date of Procedure 03/20/25 Pre-op Diagnosis Hx of Breast Augmentation Post-op Diagnosis Same Procedure Performed Bilateral breast implant exchange Surgeon Eulogio Jorgensen MD Anesthesia General Findings Previous implants: Bilateral silicone smooth 15-339. Right ruptured. 5-7cc of intracapsular blood. Capsule sent to pathology Left intact. No worrisome features. New implants: Bilateral Natrelle Inspira SofTouch 320cc Right: REF# [id number] SN [id number] Left: REF# [id number] SN [id number] Description of Procedure Preoperatively the risks, benefits, alternatives were discussed in extensive detail. I wanted to be very realistic about the risks involved as well as expectations. Discussed the complexity given her degree of capsular contracture which seems to have worsen even since her pre-operative visit. I was clear abou t how we could actually make her worse. Answered all questions to satisfaction. Voiced a clear understanding. Consent obtained. She was taken the operating room placed supine on the operating room table. Anesthesia provided by anesthesiology and prepped and draped in a standard sterile fashion. Surgical time-out was taken. 1% lidocaine and 0.25% Marcaine with epinephrine was used to provide a field block. Tegaderm nipple zayas were placed. Fifteen blade used to excise the previous IMF scars. Dissection was continued down until the capsules were identified and excised a significant portion of the capsule which was sent to pathology for the right breast. I then copiously irrigated with 3 L of saline solution on TUR tubing. Verified strict hemostasis. I then irrigated with Betadine containing solution. Using a no-touch technique and a Melendez funnel the implant was introduced into the pocket. This was closed with 2-0 PDS followed by 3-0 Monocryl. I sat her to verify position and symmetry. Placed supine and finished closing with a running subcuticular 4-0 Monocryl followed by tissue glue. Dressings were placed. She was woken taken to the PACU without difficulty. All instrument sponge counts were correct at the end of the case. Estimated Blood Loss 30 Drains No Packing No Pathology Yes (Right breast capsule) Complications No immediate complications Condition Stable Disposition PACU
--- NOTE | 2025-03-20 07:15 | P.PNAN_ITS ---
Anes - Initial Pre Proc Eval Procedure: Operation Date: 03/20/25 07:30 Proposed Procedures p Bilateral Breast Implant Exchange - Eulogio Jorgensen MD Date/Time: 03/20/25 07:15 Surgeon: Eulogio Jorgensen MD Pre Op Diagnosis: Hx of Breast Augmentation Patient Data Age: 44 Gender: F Height: 1.71 m Weight: 70.31 kg Allergies Allergy/AdvReac Type Severity Reaction Status Date / Time Sulfa (Sulfonamide Allergy Unknown Rash Verified 03/20/25 07:18 Antibiotics) Home Medications ?Medication ?Instructions ?Recorded ?Confirmed ?Type alprazolam 0.25 mg tablet (Xanax) 0.25 mg PO DAILY PRN anxiety 05/09/22 03/07/25 History escitalopram oxalate 10 mg tablet 10 mg PO DAILY 12/1103/07/25 History (Lexapro) levothyroxine 25 mcg tablet 25 mcg PO DAILY 12/11/24 0 03/20/25 History (Synthroid) Patient hx anesthesia problems: none Family hx anesthesia problems: none Results Review: All pre-operative results and documents have been reviewed as part of the pre-o perative evaluation. [facility] Past Medical History Medical History History of miscarriage EP (ectopic ) Surgical History Surgical History [place] teeth removed S/P hernia repair History of dilatation and curettage History of breast lift H/O breast augmentation S/P removal of left ovary Previous section x2 Family History Family History Mother Family history of pulmonary embolism Other Family history of malignant neoplasm of breast Family history of type 1 diabetes mellitus Social History Social History Smoking status: Never smoker Second hand tobacco smoke exposure: No Alcohol intake: current Drinks per week: 7 Alcohol use details: socially Substance use: never Substance use type: does not use Living arrangements: with family Gender identity (if verbalized by the patient): Female Spiritual care concerns: No Anes - Eval Final PreProcedure Day of Procedure 03/20/25 07:15 Patient weight: normal Heart: regular rate and rhythm Lungs: clear to auscultation Airway: Mallampati scale class II Neurological: alert and oriented Last oral intake: >/= 8 hours ASA classification: II Emergent: no Anesthetic plan: proceed Anesthesia type and monitoring: general LMA and standard monitoring Results Review: All pre-operative results and documents have been reviewed as part of the pre- operative evaluation. Informed Consent: The patient's anesthetic plan and its attendant risks and benefits were discussed with the patient/family/POA. Questions were solicited and answers provided to the satisfaction of the patient/family/POA.
[2025-03-20 07:18] LABS: BEDSIDEPREGUCG Negative (Negative)
[2025-03-20] MEDS: ceFAZolin 2 GM in SODIUM CHLORIDE 0.9% IV 50 ML 100 ML IVPB (07:24)
[2025-03-20] MEDS: LIDO 1%/EPINEPHRINE 1:100,000 50 ML VIAL 30 ML INFILTRATE (07:24)
[2025-03-20] MEDS: NACL 0.9% IRRIG POUR BOTTLE 900 ML, GENTAMICIN SULFATE INJ 160 MG, ceFAZolin 2 GM, POVI... IRRIGATION (07:24)
--- NOTE | 2025-03-20 08:18 | S_PTH ---
PATIENT: Reema San LOC: [facility] U#:[id number] AGE/SX: 44/F ROOM: RE03/20/[address]: Eulogio Jorgensen MD : 1980 BED: DIS: 03/20/2025 SPEC #: [id number] RECD: 03/20/25 09:25 STATUS: YULISSA REQ #: [id number] RAY: 03/20/25 08:[address]: Eulogoi Jorgensen DEPT: [facility] Surgical RECD BY: Janee Marie ENTERED: 03/20/25 09:26 SP TYPE: Surgical OTHR DR: Walt MackMD Tissues: A - Breast Capsule Procedures: Hematoxylin and Eosin Stain Gross and Microscopic Level 3
[2025-03-20] MEDS: fentaNYL CITRATE INJ (*CRX) 100 MCG/2 ML VIAL 25 MCG IV PUSH ×4 (09:04→09:25)
[2025-03-20] MEDS: ONDANSETRON INJ 4 MG/2 ML VIAL IV PUSH (09:28)
[2025-03-20] MEDS: oxyCODONE HCL (*CRX) 5 MG TAB IR PO (10:10)
== END 2025-03-20 10:42 | disposition home or self-care (01) ==
PROVIDERS: PCP Internal Medicine; Visit Provider Surgery Plastic and Reconstructive Surgery
PROC: (CPT 19370; principal; 2025-03-20 07:30)
DX: Z41.1 Encounter for cosmetic surgery (principal); N64.89 Other specified disorders of breast; Z79.891 Long term (current) use of opiate analgesic; Z98.890 Other specified postprocedural states; Z80.3 Family history of malignant neoplasm of breast
CPT/HCPCS: 19370; 19325; 88304; J0690; A9270; J1100; J1200; J1580; J2003; J2004; J2250; J2405; J2704; J3010; J7120